=== PATIENT | male | born 1990 | race Caucasian/White ===

== ENCOUNTER 2017-06-27 14:04 | Emergency (ER) | payer BC ==
--- NOTE | 2017-06-27 14:52 | EDM.PDOC ---
ED HPI GENERAL MEDICAL PROBLEM - General Chief Complaint: Respiratory Problem Stated Complaint: COUGH Time Seen by Provider: 06/27/17 14:35 Source of Information: Reports: Patient History Limitations: Reports: No Limitations - History of Present Illness INITIAL COMMENTS - FREE TEXT/NARRATIVE: Sarath presents today with complaints of cough with mucus production, fever and chills off and on for 7 to 10 days. He reports green to ramirez mucus production. He denies nausea, vomiting, difficulty breathing. He denies use of cigarettes, he does use chewing tobacco. Treatments MOUNTER SAXOPHONES: Reports: Acetaminophen, NSAIDS - Related Data Allergies Allergy/AdvReac Type Severity Reaction Status Date / Time No Known Allergies Allergy Verified 06/27/17 14:21 Home Meds: Home Meds NK [No Known Home Meds] 06/27/17 [History] Past Medical History - Past Health History Medical/Surgical History: Denies Medical/Surgical History ED ROS GENERAL - Review of Systems Review Of Systems: See Below Constitutional: Reports: Fever, Chills. Denies: Malaise, Weakness HEENT: Reports: Throat Pain, Other (Sinus congestion). Denies: Ear Discharge, Ear Pain, Throat Swelling Respiratory: Reports: Cough, Sputum. Denies: Shortness of Breath, Wheezing, Pleuritic Chest Pain, Hemoptysis Cardiovascular: Denies: Chest Pain, Dyspnea on Exertion, Edema, Lightheadedness , Palpitations, Syncope Endocrine: Reports: No Symptoms GI/Abdominal: Reports: No Symptoms : Reports: No Symptoms Musculoskeletal: Reports: No Symptoms Skin: Reports: No Symptoms Neurological: Reports: No Symptoms Psychiatric: Reports: No Symptoms Hematologic/Lymphatic: Reports: No Symptoms Immunologic: Reports: No Symptoms ED EXAM, GENERAL - Physical Exam Exam: See Below Free Text/Narrative:: Sarath is an alert, oriented and pleasant 27 year old presenting for sinus congestion, cough, fever and chills with illness that initially felt like it improved then worsened. Exam Limited By: No Limitations General Appearance: Alert, WD/WN, No Apparent Distress Eye Exam: Bilateral Eye: EOMI, Normal Inspection Ears: Normal External Exam, Normal Canal, Hearing Grossly Normal, Other ( Bilateral TMs dull larry) Ear Exam: Bilateral Ear: Auricle Normal, Canal Normal Nose: No Blood, Nasal Swelling, Clear Rhinorrhea. No: Nasal Tenderness Throat/Mouth: Normal Lips, Normal Teeth, Normal Voice, No Airway Compromise, Other (mild erythema to oropharynx) Head: Atraumatic, Normocephalic, Facial Tenderness, Sinus Tenderness Neck: Normal Inspection, Supple, Non-Tender, Full Range of Motion. No: Lymphadenopathy (R), Lymphadenopathy (L) Respiratory/Chest: No Respiratory Distress, Lungs Clear, No Accessory Muscle Use , Chest Non-Tender, Decreased Breath Sounds Cardiovascular: Normal Peripheral Pulses, Regular Rate, Rhythm, No Edema, No Murmur Peripheral Pulses: 2+: Radial (L), Radial (R), Dorsalis Pedis (L), Dorsalis Pedis (R) Back Exam: Normal Inspection, Full Range of Motion. No: CVA Tenderness (R), CVA Tenderness (L) Extremities: Normal Inspection, Normal Range of Motion, Non-Tender, No Pedal Edema, Normal Capillary Refill Neurological: Alert, Oriented, CN II-XII Intact, Normal Cognition, Normal Gait, No Motor/Sensory Deficits Psychiatric: Normal Affect, Normal Mood Skin Exam: Warm, Dry, Intact, Normal Color, No Rash Lymphatic: No Adenopathy Course - Vital Signs Last Recorded V/S: Last Vital Signs Temp 36.4 C 06/27/17 14:25 Pulse 69 06/27/17 14:25 Resp 14 06/27/17 14:25 BP 163/73 H 06/27/17 14:25 Pulse Ox 95 06/27/17 14:25 Departure - Departure Time of Disposition: 14:55 Disposition: Home, Self-Care 01 Condition: Good Clinical Impression: Sinusitis, Bronchitis - Discharge Information Instructions: Sinusitis, Adult, [id number] Referrals: PCP,None [Primary Care Provider] - Forms: ED Department Discharge Additional Instructions: You are suffering from sinusitis/bronchitis. Drink plenty of water. Take acetaminophen or ibuprofen for pain as needed. You can by mucinex (guaifenesin) over the counter to take twice per day for use as expectorant. You can also by fluticasone (flonase) nasal spray for congestion, one to two sprays each nare daily. Follow up with your provider in two week for recheck if needed. Return to ER for worsening issues or concerns. - Assessment/Plan Assessment:: Sinusitis Bronchitis Cough with mucus production Plan: Drink plenty of water. Take acetaminophen or ibuprofen for pain as needed. He can by mucinex (guaifenesin) over the counter to take twice per day for use as expectorant. He can also by fluticasone (flonase) nasal spray for congestion, one to two sprays each nare daily. Take doxycycline 100mg PO BID for 10 days. Follow up with provider in two week for recheck if needed. Return to ER for worsening issues or concerns.
== END 2017-06-27 15:19 | disposition home or self-care (01) ==
LOC: MERGE 14:04 → JP.ED 14:04
DX: J40 Bronchitis, not specified as acute or chronic (principal); J32.9 Chronic sinusitis, unspecified
CPT/HCPCS: 99283